=== PATIENT | male | born 1960 | race Caucasian/White ===

== ENCOUNTER 2021-07-08 02:25 | Emergency (ER) | payer MEDICAID, SELFPAY ==
--- NOTE | 2021-07-08 02:26 | ECG_ITS ---
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 Measurements Intervals [place] Rate: 82 P: 47 HI: 174 QRS: 7 QRSD: 108 T: 0 QT: 358 QTc: 420 Interpretive Statements SINUS RHYTHM LOW QRS VOLTAGE IN PRECORDIAL LEADS [QRS DEFLECTION < 1.0 mV IN CHEST LEADS] POSSIBLE LATERAL MYOCARDIAL INFARCTION , PROBABLY OLD [30 ms Q WAVE IN I/aVL/V5/V6] POSSIBLE INFERIOR MYOCARDIAL INFARCTION , PROBABLY OLD [30 ms Q WAVE IN II/aVF] No previous ECG available for comparison Electronically Signed On 07-08-2021 9:19:13 LUNCHROOM OPERATOR by Analilia Guy M.D. [id number]
--- NOTE | 2021-07-08 02:26 | XRR_ITS ---
PROCEDURE INFORMATION: Exam: XR Chest Exam date and time: 07/08/2021 2:26 AM Age: 60 years old Clinical indication: Chest pressure; Prior surgery; Surgery type: Coronary angioplasty; Patient HX: C/O chest pain. ; Additional info: Cp TECHNIQUE: Imaging protocol: XR of the chest. Views: 1 view. COMPARISON: No relevant prior studies available. FINDINGS: Lungs: No consolidation. Pleural spaces: Unremarkable. No pleural effusion. No pneumothorax. Heart/Mediastinum: No cardiomegaly. Bones/joints: No acute fracture. XR/XR chest 1V portable [id number] IMPRESSION: No acute findings.
--- NOTE | 2021-07-08 02:27 | W.ED.CHESTPA ---
HPI - Chest Pain General: Chief Complaint: Chest Pain Stated Complaint: CP Time Seen by Provider: 07/08/21 02:26 Source: patient and EMS Mode of arrival: EMS Limitations: no limitations History of Present Illness: 60-year-old male has extensive history of coronary artery disease states that he started having chest pain at 2 PM roughly 12 hours ago. States that pain throughout the day that will improve with nitro but he had to take 6-7 nitros throughout the day he states he has had 6-7 stents in the past last one was 2 years ago no recent cardiac work-up. Denies any worsening improving factors denies any shortness of breath denies any vomiting or diarrhea states he is not pain currently rates a 2 out of 10. Associated symptoms: Deny abdominal pain, dyspnea, fever(s), nausea or vomiting Review of Systems Const: Denies: fever(s), chills, body aches or change in appetite Eyes: Denies: blurry vision or eye discomfort ENMT: Denies: throat pain or dental pain Card: Reports: chest pain Resp: Denies: dyspnea GI: Denies: abdominal pain, nausea, vomiting or diarrhea : Denies: dysuria Musc: Denies: neck pain or back pain Skin/Breast: Denies: rash Neuro: Denies: headache(s) Psych: Denies: depression Romeo/Lymph: Denies: easy bruising All/Imm: Denies: urticaria PFSH ED PFSH: Medical History (Updated 07/08/21 @ 05:02 by Carlos Gama MD) Coronary artery disease Family History (Updated 07/08/21 @ 02:28 by Carlos Gama MD) Other CAD (coronary artery disease) Physical Exam Const: COMMON NORMALS: patient oriented x3 and healthy appearing HENMT: COMMON NORMALS: normocephalic and atraumatic HEAD & SCALP: normocephalic and atraumatic Eye: COMMON NORMALS: Equal, round and reactive pupils present and EOMs intact bilaterally PUPIL: Yes Equal, round and reactive pupils present Neck/C-Spine: COMMON NORMALS: full ROM and supple Chest: COMMONS NORMALS: normal inspection of the chest and normal palpation of entire chest wall Resp: COMMON NORMALS: normal respiratory effort, No retractions, No use of accessory muscles and clear to auscultation bilaterally AUSCULTATION: clear to auscultation bilaterally Cardio: COMMON NORMALS: regular rate, regular rhythm and No murmurs present (Cardio) RATE: regular rate RHYTHM: regular rhythm GI: COMMON NORMALS: Normal to inspection, nondistended, normoactive bowel sounds present, Soft to palpation, non-tender and no masses PALPATION: Yes Soft to palpation Extremity: COMMON NORMALS: normal to inspection and full ROM Neuro: COMMON NORMALS: patient oriented x3, moves all extremities and no focal motor deficits Psych: COMMON NORMALS: mental status grossly normal, Normal thought process present and cooperative THOUGHT PROCESS: Normal thought process present Skin: COMMON NORMALS: no rashes or lesions noted and no wounds GENERAL SKIN EXAM: no rashes or lesions noted Course Vital Signs: Vital signs: Vital Signs Temperature 98.0 F 07/08/21 02:28 Pulse Rate 88 07/08/21 02:28 Respiratory Rate 16 07/08/21 02:35 Pulse Oximetry 92 07/08/21 02:28 MDM - Chest Pain Medical Decision Making Patient presents here with chest pain atypical in nature he is well-appearing here initial and repeat troponins along with EKGs are normal he has been pain-free here as well no signs of pulmonary embolism no signs of pneumonia. He is to follow-up his PCP and his clinical education coordinator in 3 to 5 days and return if worsening he understands agrees to plan. Lab Data : 07/08/21 02:40 07/08/21 02:40 Radiology Impressions Chest X-Ray 07/08/21 02:26 IMPRESSION: No acute findings. Laboratory Results WBC 15.0 10^3/uL (4.0-10.0) H 07/08/21 02:40 RBC 5.70 10^6/uL (4.1-5.3) H 07/08/21 02:40 Hgb 16.6 g/dL (11.7-16.6) 07/08/21 02:40 Hct 49.5 % (42.0-52.0) 07/08/21 02:40 MCV 86.8 fl (80-94) 07/08/21 02:40 MCH 29.1 pg (28.0-34.0) 07/08/21 02:40 MCHC 33.5 g/dL (30.0-36.0) 07/08/21 02:40 RDW 12.7 % (12.1-15.1) 07/08/21 02:40 Plt Count 304 10^3/cmm (130-400) 07/08/21 02:40 MPV 10.6 fL (7.4-10.4) H 07/08/21 02:40 Neut % (Auto) 70.7 % 07/08/21 02:40 Lymph % (Auto) 18.2 % 07/08/21 02:40 Parke % (Auto) 8.3 % 07/08/21 02:40 Eos % (Auto) 1.5 % 07/08/21 02:40 Baso % (Auto) 0.7 % 07/08/21 02:40 Neut # (Auto) 10.60 10^3/uL (1.8-7.7) H 07/08/21 02:40 Lymph # (Auto) 2.7 10^3/uL (0.8-4.8) 07/08/21 02:40 Parke # (Auto) 1.2 10^3/uL (0.2-0.9) H 07/08/21 02:40 Eos # (Auto) 0.2 10^3/uL (0.0-0.8) 07/08/21 02:40 Baso # (Auto) 0.1 10^3/uL (0.0-0.1) 07/08/21 02:40 Nucleated RBC % (auto) 0 % 07/08/21 02:40 Nucleated RBCs # 0.0 /100WBC 07/08/21 02:40 Sodium 135 mmol/L (136-145) L 07/08/21 02:40 Potassium 4.3 mmol/L (3.5-5.1) 07/08/21 02:40 Chloride 101 mmol/L (98-107) 07/08/21 02:40 Carbon Dioxide 24 mmol/L (22-29) 07/08/21 02:40 Anion Gap 14.3 (5-19) 07/08/21 02:40 BUN 17 mg/dL (8-23) 07/08/21 02:40 Creatinine 0.9 mg/dL (0.7-1.2) 07/08/21 02:40 GFR Calculation 85.8 mL/min (90-130) L 07/08/21 02:40 Glucose 295 mg/dL (65-115) H 07/08/21 02:40 Calculated Osmolality 292 mOsm/kg (285-295) 07/08/21 02:40 Calcium 9.6 mg/dL (8.5-10.5) 07/08/21 02:40 Total Bilirubin 0.4 mg/dL (0.15-1.2) 07/08/21 02:40 AST 14 U/L (0-40) 07/08/21 02:40 ALT 18 U/L (0-41) 07/08/21 02:40 Alkaline Phosphatase 122 IU/L (40-130) 07/08/21 02:40 Troponin T Baseline 31 ng/L (0-15) H 07/08/21 02:40 Troponin T 120 Minute 34.11 ng/L (0-15) H 07/08/21 04:27 Delta Troponin T 3.11 ABS# (0-10) 07/08/21 04:27 Total Protein 6.3 g/dL (6.6-8.7) L 07/08/21 02:40 Albumin 3.9 g/dL (3.5-5.2) 07/08/21 02:40 Globulin 2.4 g/dL (1.3-4.6) 07/08/21 02:40 EKG Data EKG 1: I personally reviewed and interpreted this EKG as follows: EKG interpretation date: 07/08/21 EKG interpretation time: 02:27 Interpretation: nsr hr 82 with no stor t wave abnormalities qrs 108 qtc 397 EKG 2: I personally reviewed and interpreted this EKG as follows: EKG interpretation date: 07/08/21 EKG interpretation time: 04:23 Interpretation: nsr hr [address] or t wave abnormalities qrs 99 qtc 411 Discharge Plan Discharge Patient Disposition: Home Clinical Impression: Chest pain Condition: Stable Discharge Orders: Discharge ED (Routine); Ordered 07/08/21 Ordered By: Carlos Gama Referrals: Brittney Biggs LPC [Therapist] - 1-3 days Discharge Diet: Advance as tolerated Discharge Activity: Resume usual activity Patient Instructions: Chest Pain (ED) Coding Level of Care Code ED Poultry Feed Supervisor for Chg Fwd Exam Comprehensive
[2021-07-08 02:28] VITALS: PULSE 88; RESP 22; TEMP 36.7; O2SAT 92; BMI 37.3
[2021-07-08 02:35] VITALS: RESP 16
[2021-07-08] MEDS: morphine 4 mg/mL SDV 1 mL IVP (02:35)
[2021-07-08] MEDS: ondansetron 2 mg/ML SDV 2 mL 4 MG IVP (02:35)
[2021-07-08 02:49] LABS: Basophils # 0.1 10^3/uL (0.0-0.1); Basophils % 0.7 %; Eosinophils # 0.2 10^3/uL (0.0-0.8); Eosinophils % 1.5 %; Hematocrit 49.5 % (42.0-52.0); Hemoglobin 16.6 g/dL (11.7-16.6); Lymphocytes # 2.7 10^3/uL (0.8-4.8); Lymphocytes % 18.2 %; Mean Corpuscular HGB Conc 33.5 g/dL (30.0-36.0); Mean Corpuscular Hemoglobin 29.1 pg (28.0-34.0); Mean Corpuscular Volume 86.8 fl (80-94); Mean Platelet Volume 10.6 fL (7.4-10.4); Monocytes # 1.2 10^3/uL (0.2-0.9); Monocytes % 8.3 %; Neutrophils % 70.7 %; Nucleated Red Blood Cells % 0 %; Platelet Count 304 10^3/cmm (130-400); Red Cell Distribution Width 12.7 % (12.1-15.1)
[2021-07-08 03:17] LABS: Troponin(5th) Baseline 31 ng/L (0-15)
[2021-07-08 03:29] LABS: Alanine Aminotransferase 18 U/L (0-41); Albumin Level 3.9 g/dL (3.5-5.2); Alkaline Phosphatase 122 IU/L (40-130); Anion Gap 14.3 (5-19); Aspartate Amino Transferase 14 U/L (0-40); Blood Urea Nitrogen 17 mg/dL (8-23); Calcium 9.6 mg/dL (8.5-10.5); Carbon Dioxide 24 mmol/L (22-29); Chloride 101 mmol/L (98-107); Globulin 2.4 g/dL (1.3-4.6); Glomerular Filtration Rate 85.8 mL/min (90-130); Glucose 295 mg/dL (65-115); Osmolality Calculated 292 mOsm/kg (285-295); Potassium 4.3 mmol/L (3.5-5.1); Sodium 135 mmol/L (136-145); Total Bilirubin 0.4 mg/dL (0.15-1.2); Total Protein 6.3 g/dL (6.6-8.7)
--- NOTE | 2021-07-08 04:26 | ECG_ITS ---
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 [id number]
[2021-07-08 05:15] LABS: Troponin 5 2HR 34.11 ng/L (0-15)
[2021-07-08 05:17] LABS: Troponin 5 2HR Delta 3.11 ABS# (0-10)
== END 2021-07-08 05:40 | disposition home or self-care (01) ==
PROVIDERS: Emergency Provider Emergency Medicine
DX: R07.9 Chest pain, unspecified (principal); I25.10 Atherosclerotic heart disease of native coronary artery without angina pectoris
CPT/HCPCS: 71045; 80053; 84484; 85025; 93005; 96374; 96375; 99283; J2270; J2405

== ENCOUNTER 2022-02-21 01:02 | Inpatient (IN) | payer MEDICAID, SELFPAY ==
[2022-02-21] VITALS (18 sets, daily range): BP systolic 111–148; BP diastolic 76–87; PULSE 58–88; RESP 16–24; TEMP 36.1–36.9; O2SAT 94–97; BMI 33.0
--- NOTE | 2022-02-21 01:05 | ECG_ITS ---
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 Measurements Intervals [place] Rate: 70 P: 58 DE: 160 QRS: -26 QRSD: 88 T: 91 QT: 398 QTc: 432 Interpretive Statements SINUS RHYTHM POSSIBLE INFERIOR MYOCARDIAL INFARCTION , PROBABLY OLD [30 ms Q WAVE IN II/aVF] Compared to ECG 07/08/2021 04:23:47 Myocardial infarct finding now present T-wave abnormality no longer present Electronically Signed On 02-21-2022 7:36:52 CDT by Danny Villafana M.D. [id number]
--- NOTE | 2022-02-21 01:05 | USR_ITS ---
PROCEDURE INFORMATION: Exam: US Duplex Bilateral Extracranial Arteries, Carotid Arteries Exam date and time: 02/21/2022 2:02 AM Age: 61 years old Clinical indication: Other: Lt side painful and week; Additional info: CVA TECHNIQUE: Imaging protocol: Real-time Duplex ultrasound scan of the bilateral carotid and vertebral arteries combining shi scale, color Doppler and spectral waveform analysis. Bilateral exam. Exam focused on the carotid arteries. Other technique: Any reported ICA stenoses indirectly reference the distal internal carotid diameter as the denominator for the stenosis measurement, utilizing consensus panel criteria. COMPARISON: No relevant prior studies available. FINDINGS: RIGHT: Moderate bulb plaque ICA PSV: Low at 48.1 cm/sec distally and 26.3 cm/s proximally. CCA PSV: 101.4 cm/sec ICA/CCA ratio: 0.45 Vertebral flow is antegrade. External carotid artery is patent. LEFT: Minimal bulb plaque ICA PSV: 97 cm/sec CCA PSV: 102.5 cm/sec ICA/CCA ratio: 0.94 Vertebral flow is antegrade. External carotid artery is patent. US/CV carotid duplex BI* [id number] IMPRESSION: 1. Moderate right bulb plaque. Decreased peak systolic velocities of the right proximal internal carotid artery with high resistance waveforms. This is suggestive of severe >90% stenosis. Recommend CTA or MRI for further assessment. 2. Left ICA < 50% stenosis by Carotid Stenosis Reference using SRU criteria. 3. Antegrade flow in bilateral vertebral arteries. REFERENCES: SRU CRITERIA. The degree of internal carotid artery stenosis is based on criteria defined by the Society of Radiologists in Ultrasound (SRU). Normal is no stenosis. Mild is less than 50% stenosis. Moderate is 50-69% stenosis. Severe is greater than 69% stenosis to near occlusion. Near occlusion is a markedly narrowed lumen. Total occlusion is no detectable patent lumen.
--- NOTE | 2022-02-21 01:05 | XRR_ITS ---
PROCEDURE INFORMATION: Exam: XR Left Shoulder Exam date and time: 02/21/2022 1:58 AM Age: 61 years old Clinical indication: Pain; Shoulder; Left TECHNIQUE: Imaging protocol: Radiologic exam of the Left shoulder. Views: 2 or more views. Total images: 132 COMPARISON: CR XR chest 1V portable [id number] 07/08/2021 3:06 AM FINDINGS: Bones/joints: Widening of left AC joint with small ossification within joint space but no significant adjacent soft tissue swelling most likely represents a remote injury. No additional fracture, subluxation, or dislocation detected. Soft tissues: See Bones/joints finding. XR/XR shoulder LT 1V [id number] IMPRESSION: Widening of left AC joint with small ossification within joint space but no significant adjacent soft tissue swelling most likely represents a remote injury.
--- NOTE | 2022-02-21 01:05 | USCV_ITS ---
Steve Louis Age: 61 Gender: M : 1960 Exam Date: 02/21/2022 01:32 Ordering Phys: Quintin Greer MD Technologist: Roro Le Exam Location: [facility] [place] Indication: CVA BP: 143 / 79 HR: 72 Rhythm: Sinus Technical Quality: Suboptimal MEASUREMENTS (Male / Female) Normal Values 2D ECHO LV Diastolic Diameter PLAX 3.2 cm 4.2 - 5.9 / 3.9 - 5.3 cm LV Systolic Diameter PLAX 2.5 cm LV Chamber Size 4.0 cm IVS Diastolic Thickness 1.0 cm 0.6 - 1.0 / 0.6 - 0.9 cm IVS Systolic Thickness 0.9 cm LVPW Diastolic Thickness 1.8 cm 0.6 - 1.0 / 0.6 - 0.9 cm LVPW Systolic Thickness 1.9 cm RV Chamber Size 2.7 cm LVOT Diameter 2.0 cm LV Ejection Fraction 2D Teich 43.3 % LV Ejection Fraction MOD 2C 42.9 % LV Ejection Fraction 2C AL 44.1 % LA Diameter 3.2 cm LA Width 3.5 cm LA Height 4.5 cm RA Width 3.2 cm RA Height 4.1 cm Aorta at Sinotubular Diameter 3.1 cm IVC Diameter 2.2 cm M-MODE Aortic Annulus Diameter 3.4 cm LA Ao Ratio MM 1.0 MV E Point Septal Separation 2.2 cm DOPPLER AV Peak Velocity 150.0 cm/s LVOT Peak Velocity 89.0 cm/s AV Area Cont Eq vti 2.2 cm squared AV Area Cont Eq pk 1.9 cm squared MV Area PHT 2.9 cm squared Mitral E to A Ratio 0.7 MV E' Velocity 56.0 cm/s TR Peak Velocity 176.5 cm/s TR Peak Gradient 12.5 mmHg TR Mean Velocity 135.5 cm/s TR Mean Gradient 7.9 mmHg TR Velocity Time Integral 55.2 cm TV Peak E Velocity 59.0 cm/s Right Atrial Pressure 3.0 mmHg Pulmonary Artery Systolic Pressu 15.5 mmHg RV Acceleration Time 0.2 s RV Ejection Time 0.4 s RV AcT/ET 0.5 FINDINGS Left Ventricle Normal left ventricular size, systolic function and wall thickness, with no regional wall motion abnormalities. Grade I/IV diastolic dysfunction (abnormal relaxation filling pattern), normal to mildly elevated filling pressures. Left ventricular ejection fraction is estimated at 60 %. Right Ventricle Normal right ventricular size and systolic function. Normal right ventricular systolic pressure. Right Atrium The right atrium is normal in size. Left Atrium The left atrium is normal in size. Mitral Valve Structurally normal mitral valve without significant stenosis or prolapse. There is no mitral regurgitation. Aortic Valve Structurally normal aortic valve without significant sclerosis or stenosis. There is no aortic regurgitation. Tricuspid Valve Structurally normal tricuspid valve without significant stenosis or regurgitation. Pulmonary artery systolic pressure is normal. Pulmonic Valve Pulmonic valve not well visualized. Pericardium Normal pericardium without effusion. Aorta Normal ascending aorta dimension. IVC Inferior vena cava not visualized. CONCLUSIONS Normal left ventricular size, systolic function and wall thickness, with no regional wall motion abnormalities. Grade I/IV diastolic dysfunction (abnormal relaxation filling pattern), normal to mildly elevated filling pressures. Left ventricular ejection fraction is estimated at 60 %. There are no prior echocardiogram studies to compare. Dr. Danny Villafana MD (Electronically Signed) Final Date: 21 February 2022 07:26 S
[2022-02-21 01:10] LABS: Glucose Point of Care 352 mg/dL (70-110)
--- NOTE | 2022-02-21 01:11 | PM.HP ---
Providers/Chief Complaint Admitting Physician: Quintin Greer MD Chief Complaint: CVA History of Present Illness Steve Louis is a 61 year old male with a past medical history of CAD status post 7 stents, history of hypertension, hyperlipidemia, history of hepatitis C, history of COPD, history of noncompliance, who presents [facility] as a transfer from [facility] for concerns for left-sided weakness, difficulty walking, left-sided numbness, concerns for CVA. Patient tells me that for the last 2 weeks, he has had left upper and left lower extremity weakness, left upper and lower extremity numbness, slight left tongue numbness, no slurring of words, slight left facial droop, no visual deficits, trouble walking, difficulty standing. He tells me that his symptoms were intermittent for the last 2 weeks, they would go away on their own, but they were becoming much more profound, much more constant, such that today he had significant numbness and weakness of his left upper and lower extremity throughout the day thus he decided to come to the emergency room. Currently he reports left upper extremity and left lower extremity numbness, left upper left lower extremity weakness, left tongue numbness, no slurring words, slight left facial droop, no trouble understanding me, no productive aphasia, no receptive aphasia, denies any trouble swallowing, no visual deficits, but he tells it when his sugars are high he gets blurry vision, and his sugars were high at [facility] over 600. He tells me that he has not taking any of his medications for the last year or so, he was on Plavix at 1 point, his last one was over a year ago, denies a history of TIA in the past, denies a history of strokes. He tells me that he was on metformin for diabetes but it was causing diarrhea so he stopped it. His blood sugar was over 600 at [facility], he was given insulin, repeat blood sugar came to the low 400s, currently 352, anion gap was 21, bicarb was 22, he does report alcohol use, chronic history of alcoholism, he drank a half a pint of whiskey today, he also reports methamphetamine abuse, he was also found to have a UTI at [facility] was given Rocephin, his troponin was also negative at [facility], his CT of his head showed focal area of hypodensity in the involving the right frontal lobe, likely represents acute to subacute infarct, there is a similar but smaller focus of on the right parietal lobe, denies a history of atrial fibrillation, denies being on any blood thinners except atrial fibrillation. Currently he is describing left shoulder discomfort and left shoulder pain, he tells me that he has been having it for the last week but is becoming much more profound, really not chest pain, but the pain is in his anterior chest closer to his shoulder, he is not injured his left shoulder, no heavy lifting he was given fentanyl at [facility] without improvement. He was also diagnosed with a UTI, however his nitrates was negative, leukocyte esterase was negative, was given Rocephin. Review of Systems Const: Denies: fever(s) Eyes: Reports: blurry vision; Denies: change in vision Card: Reports: chest pain Resp: Denies: dyspnea GI: Denies: abdominal pain : Denies: dysuria Musc: Reports: joint pain Skin/Breast: Denies: rash Neuro: Reports: numbness in extremities, weakness in extremities, sensory changes, lack of coordination, difficulty walking and frequent falls; Denies: headache(s), Slurred speech present or difficulty communicating thoughts Endo: Reports: polyuria Medications/Allergies Allergies Allergy/AdvReac Type Severity Reaction Status Date / Time chlorpromazine Allergy Unknown Verified 07/08/21 03:05 [From Thorazine] codeine Allergy Unknown Verified 07/08/21 02:29 PFSH Acute PFSH: Medical History (Updated 02/21/22 @ 01:18 by Quintin Greer MD) Coronary artery disease History of alcoholism History of COPD History of drug use History of hepatitis C History of hyperlipidemia History of hypertension History of liver disease History of type 2 diabetes mellitus Surgical History (Updated 02/21/22 @ 01:18 by Quintin Greer MD) History of cholecystectomy History of heart artery stent Family History (Updated 02/21/22 @ 01:18 by Quintin Greer MD) Mother CAD (coronary artery disease) Social History (Updated 02/21/22 @ 01:19 by Quintin Greer MD) Smoking and tobacco status: never smoked Alcohol intake: current Substance/Drug Use: current Physical Exam Const: COMMON NORMALS: no acute distress and patient oriented x3 HENMT: COMMON NORMALS: normocephalic HEAD & SCALP: normocephalic Eye: COMMON NORMALS: Equal, round and reactive pupils present and EOMs intact bilaterally Neck/C-Spine: COMMON NORMALS: no JVD Resp: COMMON NORMALS: normal respiratory effort, No retractions, No use of accessory muscles and clear to auscultation bilaterally AUSCULTATION: clear to auscultation bilaterally Cardio: COMMON NORMALS: no JVD, regular rate, regular rhythm, S1 normal heart sound present and S2 normal heart sound present RATE: regular rate RHYTHM: regular rhythm HEART SOUNDS: S1 normal heart sound present and S2 normal heart sound present GI: COMMON NORMALS: Normal to inspection, nondistended, normoactive bowel sounds present, Soft to palpation, non-tender, No hepatosplenomegaly present, no masses and no bruits PALPATION: Yes Soft to palpation and Yes No hepatosplenomegaly present Extremity: COMMON NORMALS: capillary refill normal, no clubbing, cyanosis or edema, no calf tenderness and no pedal edema Neuro: COMMON NORMALS: patient oriented x3 and CN's II-XII intact bilaterally OTHER: Left upper extremity strength 3 out of 5 compared to 5 out of 5 on the right Loss of sensation on left upper extremity Left lower extremity strength 3 out of 5 compared to 5/5 in the right [id number] abnormal on the left Slight left facial droop Psych: COMMON NORMALS: mental status grossly normal A&P Assessment and plan (1) Noncompliance: Status: Acute (2) Hyperglycemia: Status: Acute (3) CVA (cerebral vascular accident): Status: Acute (4) Chest pain: Status: Acute (5) Coronary artery disease: Status: Acute Plan CVA -Head CT shows focal area of hypodensity involving the right frontal lobe which is new since 2017, and likely represents an acute to subacute infarct, there is similar but smaller focus involving the right parietal lobe -No history of atrial fibrillation -Left-sided weakness and numbness, falls, slight left facial droop Plan -Neurochecks, NIH stroke scale, aspiration precautions -Aspirin 81 mg daily, Plavix 75 mg daily, bridge for 3 weeks -Atorvastatin 40 mg once daily -Cardiac echo, carotid artery ultrasound -PT OT, speech therapy eval -Telemetry monitoring -Given he has multiple infarcts in different vascular territories, recommend Holter monitor or event monitor on discharge -Full code -Lovenox for DVT prophylaxis Chest pain complaints -His chest pain complaints are atypical, do's seem more shoulder related -Serial EKGs serial troponins, telemetry monitoring -Aspirin, statin, Coreg -Cardiac echo -Further work-up based on test results Hypertensive urgency -Blood pressures at [facility] systolics in the 160s, diastolics in the 100 -We will start Coreg 3.125 twice daily, monitor blood pressure closely Type 2 diabetes mellitus, with hyperglycemia -Check A1c -Blood sugars over 600s, no significance of DKA -Moderate dose sliding scale -Lantus 5 units every 12 hours -Monitor blood sugars closely Hypertension as above Hyperlipidemia, lipid panel Hepatitis C history, acute hep panel, viral load, will need to follow-up with GI or infectious disease as outpatient History of alcoholism, CIWA score History of methamphetamine abuse, could be a contributing factor to his chest pain, CVA Attestations Medical Necessity Statement*: Patient requires hospitalization, inpatient, greater than 2 midnights, for acute CVA, chest pain, hypertensive urgency, hyperglycemia, alcoholism, Coding Level of Care Code 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
[2022-02-21] MEDS: enoxaparin 40 mg/0.4 mL Syringe SUBCUT (02:32)
[2022-02-21] MEDS: atorvastatin 40 mg Tablet PO (02:33)
[2022-02-21] MEDS: aspirin 81 mg EC Tablet PO (02:33)
[2022-02-21] MEDS: clopidogrel 75 mg Tablet PO (02:34)
[2022-02-21] MEDS: carvedilol 3.125 mg Tablet PO ×2 (02:34→12:51)
[2022-02-21] MEDS: morphine 4 mg/mL SDV 1 mL 2 MG IVP (02:35)
[2022-02-21] MEDS: insulin glargine 100 units/1 mL 5 UNIT SUBCUT ×2 (02:36→14:42)
[2022-02-21 04:47] LABS: Troponin(5th) Baseline 36 ng/L (0-15)
[2022-02-21 05:03] LABS: Chol HDL Ratio 7.19 mg/dL (1.0-5.00); Cholesterol 187 mg/dL (0-200); HDL Cholesterol 26 mg/dL (60-100); LDL Cholesterol Calculated 110 mg/dL (50-129); LDL HDL Ratio 4.23 RATIO (0.00-3.22); NT Pro B Type Natriuretic Pept 234 pg/mL (0-125); Triglycerides 255 mg/dL (0-150)
[2022-02-21 05:04] LABS: Estmated Average Glucose 289; Hemoglobin A1C 11.7 % (4.0-6.0)
[2022-02-21 05:08] LABS: Hepatitis A Antibody IgM Non-Reactive (Nonreactive); Hepatitis B Core IgM Non-Reactive (Nonreactive); Hepatitis B Surface Antigen Non-Reactive (Nonreactive); Hepatitis C Virus Antibody Reactive (Nonreactive)
[2022-02-21 05:29] LABS: Alanine Aminotransferase 24 U/L (0-41); Albumin Level 3.5 g/dL (3.5-5.2); Alkaline Phosphatase 113 U/L (40-130); Aspartate Amino Transferase 32 U/L (0-40); Globulin 3.1 g/dL (1.3-4.6); Magnesium 1.9 mg/dL (1.7-2.3); Total Bilirubin 0.5 mg/dL (0.15-1.2); Total Protein 6.6 g/dL (6.6-8.7)
--- NOTE | 2022-02-21 06:19 | ECG_ITS ---
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 Measurements Intervals [place] Rate: 63 P: -36 ND: 153 QRS: -13 QRSD: 89 T: 105 QT: 407 QTc: 417 Interpretive Statements SINUS RHYTHM NONSPECIFIC T-WAVE ABNORMALITY Compared to ECG 02/21/2022 03:50:03 T-wave abnormality now present Myocardial infarct finding no longer present Electronically Signed On 02-21-2022 7:40:34 CDT by Danny Villafana M.D. [id number]
[2022-02-21 06:32] LABS: Glucose Point of Care 324 mg/dL (70-110)
[2022-02-21 06:44] LABS: Troponin 5 2HR 34.51 ng/L (0-15)
[2022-02-21 07:04] LABS: Troponin 5 2HR Delta -1.49 ABS# (0-10)
[2022-02-21] MEDS: insulin lispro 100 unit/1 mL SUBCUT ×4 (08:53→21:34)
[2022-02-21] MEDS: thiamine 100 mg Tablet PO (08:54)
[2022-02-21] MEDS: multivitamin therapeutic Tablet 1 TAB PO (08:54)
[2022-02-21] MEDS: pantoprazole DR 40 mg Tablet PO (08:54)
[2022-02-21] MEDS: folic acid 1 mg Tablet PO (08:54)
--- NOTE | 2022-02-21 09:55 | PC.PHAR ---
pt states he hasnt been taking any medications-pt hasnt picked up rx filled 02/01/22 30d/s for atorvastatin 40mg daily and imdur 15mg daily rx was last filled and picked up on 11/13/21 30d/s-pt states he use to take metformin 1000mg [facility] states last filled 08/2021 30d/s pt states it made him sick to take
[2022-02-21 10:59] LABS: Troponin 5 6HR 37.83 ng/L (0-15); Troponin 5 6HR Delta 1.83 ng/L (0-12)
[2022-02-21] MEDS: acetaminophen 325 mg Tablet 650 MG PO (11:22)
[2022-02-21 12:04] LABS: Glucose Point of Care 279 mg/dL (70-110)
--- NOTE | 2022-02-21 12:19 | P.MISC_ITS ---
Miscellaneous Note Note: Overnight labs and H&P reviewed. Patient seen and examined at bedside this morning. Noted still with left upper and lower extremity weakness. Awaiting PT OT evaluation. Was able to swallow his breakfast this morning without any issues. Echocardiogram shows normal ventricular size, normal sy stolic function and wall thickness. Grade 1 diastolic dysfunction noted. LVEF at 60%. Carotid Doppler with moderate right bulb plaque, severe greater than 90% stenosis. Left ICA less than 50%. Anterograde flow noted in bilateral vertebral arteries.Continue aspirin and Plavix. Will discuss findings of vertebral stenosis with neurology. Ordered additionally nicotine patch. Noted to have slight wheezing in bilateral lungs. Added DuoNeb every 6 hours standing nebulization.
[2022-02-21] MEDS: nicotine 14 mg Patch 1 PATCH TRANSDERMA (12:50)
--- NOTE | 2022-02-21 14:44 | PC.NURSE ---
Glarigan 5 units had to be manually documented due to bar code not scanning. Benedicto notified, hand carried glarigan to pharmacy. New label placed and returned to floor. Still will not scan. Benedicto stated to manually document. Manually documented and verified with KOLBY Tan.
[2022-02-21] MEDS: ipratropium-albuterol 3 mL Neb INHALATION ×2 (14:47→19:41)
[2022-02-21 16:32] LABS: Glucose Point of Care 225 mg/dL (70-110)
--- NOTE | 2022-02-21 16:51 | PM.CONSULT ---
Providers/Reason For Consult Consulting Physician/Specialty*: Dr. Weiss/cardiothoracic surgery Reason for Consult*: Right carotid artery stenosis with right hemispheric CVA Requesting Physician: Dr. Hansen Attending Physician: Johana Hansen MD Primary Care Provider: Cody Monterroso History of Present Illness History of Present Illness Steve Louis is a 61 year old male who was transferred from [facility] in the early hours of this morning for continued treatment for an apparent CVA. Mr. Louis had been complaining of increasing difficulty with walking along with left-sided weakness and now progressive left-sided paresthesias. The symptoms all began about 2 weeks ago with a slight period of improvement and now worsening. He presented with left upper and left lower extremity weakness along with paresthesia. He also has some slight hypoesthesia of his tongue though no slurring of speech or facial droop. Over the past 2 days prior to presentation, the symptoms have increased and been more consistent as compared to their variability prior. He has numerous comorbidities including coronary artery disease status post 7 stents. He also has a history of hyperlipidemia, hepatitis C, hypertension, COPD, and history of medical noncompliance. He also has diabetes mellitus. No reported prior history for TIA/CVA. Upon presentation to [facility] he was noted to have serum glucose of over 400 with an anion gap of 21. Also found to have a urinary tract infection and was given Rocephin. CT scan of the head obtained at [facility] showed focal areas of hypodensity involving the right frontal lobe as well as a smaller focus in the right parietal lobe which they felt represented subacute infarction. No history for arrhythmias. Since arrival, transthoracic echocardiogram revealed preserved LV function with normal ventricular size and wall thickness and motion. Carotid duplex study describes a right carotid bulb plaque suggesting stenosis of over 90%. Left ICA suggest stenosis less than 50%. Dr. Hansen has conferred with our neurologist, Dr. Canas. She has recommended consideration for MRI/MRA of the head and neck to help further quantify the disease as well as establish a timeline for presentation. On my rounds this afternoon, Mr. Louis is sleeping on his right side. His sleep is regular without snoring. Nurses report no specific concerns on day shift. He is able to swallow medications and food without difficulty. Current medications include Lovenox, Plavix, aspirin, Lipitor, and insulin per protocol. Review of Systems Const: Reports: body aches; Denies: fever(s) or chills Eyes: Reports: blurry vision ENMT: Denies: throat pain, odynophagia or hoarseness Card: Reports: dyspnea on exertion; Denies: chest pain, palpitations, irregular heart rhythm or swelling of feet/ankles Resp: Denies: non-productive cough, wheezing or hemoptysis GI: Denies: nausea, vomiting or hematemesis Musc: Reports: back pain and joint pain Skin/Breast: Denies: rash or changes in skin color Neuro: Reports: numbness in extremities, weakness in extremities and sensory changes; Denies: lack of coordination, confusion, Slurred speech present or difficulty communicating thoughts Endo: Reports: polyuria and polydipsia Romeo/Lymph: Denies: easy bleeding or petechiae Medications/Allergies Home Medications Medication Instructions Recorded Confirmed Last Taken Type albuterol sulfate 90 mcg/actuation 2 puff inhalation Q4H PRN 02/21/22 02/21/22 Unknown History aerosol inhaler (ProAir HFA) Shortness Of Breath atorvastatin 40 mg tablet 40 mg PO QPM 02/21/22 02/21/22 Unknown History isosorbide mononitrate 30 mg 15 mg PO QAM 02/21/22 02/21/22 Unknown History tablet,extended release 24 hr Allergies Allergy/AdvReac Type Severity Reaction Status Date / Time chlorpromazine Allergy Unknown Verified 02/21/22 09:49 [From Thorazine] codeine Allergy Unknown Verified 02/21/22 09:49 Current Medications Generic Name Dose Route Start Last Admin Trade Name Freq PRN Reason Stop Dose Admin Acetaminophen 650 mg 02/21/22 01:05 02/21/22 11:22 Acetaminophen 325 Mg Tablet PO 650 mg Q6H PRN Administration Mild/Mod Pain Or Temp >/= 101 Albuterol/Ipratropium 3 ml 02/21/22 14:00 02/21/22 14:47 Ipratropium-Albuterol 3 Ml Neb INHALATION 3 ml Q6H.RESP ARABELLA Administration Aspirin 81 mg 02/21/22 01:15 02/21/22 02:33 Aspirin 81 Mg Ec Tablet PO 81 mg Q24H ARABELLA Administration Atorvastatin Calcium 40 mg 02/21/22 01:15 02/21/22 02:33 Atorvastatin 40 Mg Tablet PO 40 mg Q24H ARABELLA Administration Carvedilol 3.125 mg 02/21/22 01:15 02/21/22 12:51 Carvedilol 3.125 Mg Tablet PO 3.125 mg Q12H ARABELLA Administration Clopidogrel Bisulfate 75 mg 02/21/22 01:15 02/21/22 02:34 Clopidogrel 75 Mg Tablet PO 75 mg Q24H ARABELLA Administration Enoxaparin Sodium 40 mg 02/21/22 01:15 02/21/22 02:32 Enoxaparin 40 Mg/0.4 Ml Syringe SUBCUT 40 mg Q24H ARABELLA Administration Folic Acid 1 mg 02/21/22 09:00 02/21/22 08:54 Folic Acid 1 Mg Tablet PO 1 mg DAILY ARABELLA Administration Insulin Human Lispro 0 unit 02/21/22 08:00 02/21/22 12:50 Insulin Lispro 100 Unit/1 Ml SUBCUT 10 unit WM&BEDTIME ARABELLA Administration Protocol Morphine Sulfate 2 mg 02/21/22 01:05 02/21/22 02:35 Morphine 4 Mg/Ml Sdv 1 Ml IVP 2 mg Q4H PRN Administration SEVERE PAIN Multivitamins Therapeutic 1 tab 02/21/22 09:00 02/21/22 08:54 Multivitamin Therapeutic Tablet PO 1 tab DAILY ARABELLA Administration Nicotine 1 patch 02/21/22 12:25 02/21/22 12:50 Nicotine 14 Mg Patch TRANSDERMA 1 patch DAILY ARABELLA Administration Pantoprazole Sodium 40 mg 02/21/22 09:00 02/21/22 08:[address] 40 Mg Tablet PO 40 mg DAILY ARABELLA Administration Thiamine Mononitrate 100 mg 02/21/22 09:00 02/21/22 08:54 Thiamine 100 Mg Tablet PO 100 mg DAILY ARABELLA Administration PFSH Acute PFSH: Medical History Coronary artery disease History of alcoholism History of COPD History of drug use History of hepatitis C History of hyperlipidemia History of hypertension History of liver disease History of type 2 diabetes mellitus Surgical History History of cholecystectomy History of heart artery stent Family History Mother CAD (coronary artery disease) Social History Smoking and tobacco status: never smoked Alcohol intake: current Substance/Drug Use: current Current occupation: Disabled Vitals/I&O/Wt Last Vital Signs Temp 98.0 F 02/21/22 11:30 Pulse 76 02/21/22 14:48 Resp 16 02/21/22 14:48 BP 123/87 02/21/22 11:30 Pulse Ox 95 02/21/22 14:48 O2 Del Method 02/21/22 14:48 02/21/22 02/21/22 02/21/22 06:59 14:59 22:59 Intake Total 360 / 360 1072 / 1072 Output Total 450 / 450 Balance -90 / -90 1072 / 1072 Weight last 48 hrs Weight 237 lb Physical Exam HENMT: COMMON NORMALS: normocephalic and atraumatic HEAD & SCALP: normal to inspection, normocephalic and atraumatic Neck/C-Spine: OTHER: No left carotid bruit. Patient was sleeping fairly heavily at the time of my exam. He was lying on his right side, was unable to assess his right neck. I will follow-up with this tomorrow. Chest: COMMONS NORMALS: normal palpation of entire chest wall CHEST: Yes Symmetrical chest wall rise Resp: COMMON NORMALS: normal respiratory effort, No retractions, No use of accessory muscles and clear to auscultation bilaterally AUSCULTATION: clear to auscultation bilaterally Cardio: COMMON NORMALS: regular rate, regular rhythm, S1 normal heart sound present and No murmurs present (Cardio) RATE: regular rate RHYTHM: regular rhythm HEART SOUNDS: S1 normal heart sound present GI: COMMON NORMALS: Normal to inspection, nondistended, normoactive bowel sounds present INSPECTION: Yes central obesity Extremity: NARRATIVE EXTREMITY EXAM: 1+ lower extremity edema Neuro: OTHER: Neurologic exam was not completed this afternoon as patient was sleeping fairly heavily at the time of my exam. Nurses report he had been sleeping in the bed of the afternoon. I will follow-up with him tomorrow for further assessment. While awake, nurses report no change in his neurologic exam as compared to presentation which included left upper and lower extremity weakness. A&P Assessment and plan (1) Carotid stenosis with cerebral infarction less than 8 weeks ago: I have conferred with my colleague Dr. Hansen. She has conferred with Dr. Canas. We will await results of the MRA of the head and neck. Given that there is documented cerebral tissue infarction, it would be most ideal not to proceed with anticoagulation associated with carotid endarterectomy at this early stage (for fear of postinfarction hemorrhage with anticoagulation) unless we suspect there is ongoing stuttering infarction from this lesion. We will be able to get further clarification of the anatomy once the radiographic studies have been completed. A great appreciate Dr. Hansen's input along with Dr. Canas, I will follow closely with them. Status: Acute Consult Attestations Medical Necessity Statement: Carotid stenosis with cerebral infarction less than 8 weeks Coding Level of Care Code New Pt Acute Business Process Representative for Chg Fwd Patient Type New Diagnoses Carotid stenosis with cerebral infarction less than 8 weeks ago
[2022-02-21 20:58] LABS: Glucose Point of Care 357 mg/dL (70-110)
[2022-02-21] MEDS: oxyCODONE-APAP 5-325 mg Tablet 1 TAB PO (21:34)
[2022-02-22] VITALS (15 sets, daily range): BP systolic 117–136; BP diastolic 63–95; PULSE 48–72; RESP 18–22; TEMP 36.3–36.7; O2SAT 94–98
[2022-02-22] MEDS: carvedilol 3.125 mg Tablet PO (00:16)
[2022-02-22] MEDS: atorvastatin 40 mg Tablet PO (00:16)
[2022-02-22] MEDS: enoxaparin 40 mg/0.4 mL Syringe SUBCUT (00:16)
[2022-02-22] MEDS: clopidogrel 75 mg Tablet PO (00:16)
[2022-02-22] MEDS: aspirin 81 mg EC Tablet PO (00:16)
[2022-02-22] MEDS: ipratropium-albuterol 3 mL Neb INHALATION ×3 (01:16→14:28)
[2022-02-22] MEDS: insulin glargine 100 units/1 mL 5 UNIT SUBCUT (05:11)
[2022-02-22] MEDS: oxyCODONE-APAP 5-325 mg Tablet 1 TAB PO ×2 (05:11→22:11)
[2022-02-22 05:32] LABS: Basophils # 0.1 10^3/uL (0.0-0.1); Eosinophils # 0.3 10^3/uL (0.0-0.8); Eosinophils % 2.4 %; Hematocrit 50.7 % (42.0-52.0); Hemoglobin 16.7 g/dL (11.7-16.6); Lymphocytes # 3.5 10^3/uL (0.8-4.8); Mean Corpuscular HGB Conc 32.9 g/dL (30.0-36.0); Mean Corpuscular Hemoglobin 29.2 pg (28.0-34.0); Mean Corpuscular Volume 88.8 fl (80-94); Mean Platelet Volume 10.8 fL (7.4-10.4); Monocytes # 1.2 10^3/uL (0.2-0.9); Monocytes % 9.1 %; Neutrophils # 7.58 10^3/uL (1.8-7.7); Neutrophils % 59.1 %; Nucleated Red Blood Cells % 0 %; Platelet Count 303 10^3/cmm (130-400); Red Blood Count 5.71 10^6/uL (4.1-5.3); Red Cell Distribution Width 12.9 % (12.1-15.1); White Blood Count 12.8 10^3/uL (4.0-10.0)
[2022-02-22 05:49] LABS: Anion Gap 15.9 (5-19); Blood Urea Nitrogen 13 mg/dL (8-23); Calcium 9.1 mg/dL (8.5-10.5); Carbon Dioxide 20 mmol/L (22-29); Chloride 99 mmol/L (98-107); Creatinine Clr Calc Pharmacy 106.1431; Glomerular Filtration Rate 85.5 mL/min (90-130); Glucose 257 mg/dL (65-115); Osmolality Calculated 281 mOsm/kg (285-295); Potassium 3.9 mmol/L (3.5-5.1); Sodium 131 mmol/L (136-145)
[2022-02-22 06:22] LABS: Glucose Point of Care 234 mg/dL (70-110)
[2022-02-22] MEDS: insulin lispro 100 unit/1 mL SUBCUT ×4 (09:07→21:22)
[2022-02-22] MEDS: pantoprazole DR 40 mg Tablet PO (09:08)
[2022-02-22] MEDS: multivitamin therapeutic Tablet 1 TAB PO (09:08)
[2022-02-22] MEDS: nicotine 14 mg Patch 1 PATCH TRANSDERMA (09:08)
[2022-02-22] MEDS: folic acid 1 mg Tablet PO (09:09)
--- NOTE | 2022-02-22 10:06 | PC.OT ---
OT tx attempted 929. Pt reports feeling SOB after that breathing tx . Nursing checking pt and report he is ok for OT tx. Pt requesting to wait awhile . Therapist to return later today.
[2022-02-22] MEDS: thiamine 100 mg Tablet PO (10:23)
--- NOTE | 2022-02-22 11:13 | CTR_ITS ---
PROCEDURE INFORMATION: Exam: CTA Head With Contrast, Arteriography Exam date and time: 02/22/2022 9:44 PM Age: 61 years old Clinical indication: Prior surgery; Surgery type: Coronary stent; Patient HX: RT carotid stenosis noted on US on 02/21/2022. ; Additional info: Carotid stenosis, 3d reconstruction per Dr. Mares TECHNIQUE: Imaging protocol: Computed tomographic angiography of the head with contrast. Exam focused on the arteries. 3D rendering (Not supervised by radiologist): MIP and/or 3D reconstructed images were created by the technologist. Radiation optimization: All CT scans at this facility use at least one of these dose optimization techniques: automated exposure control; mA and/or kV adjustment per patient size (includes targeted exams where dose is matched to clinical indication); or iterative reconstruction. Contrast material: OMNI 350; Contrast volume: 95 ml; Contrast route: INTRAVENOUS (IV); COMPARISON: CT head wo con* [id number] 02/20/2022 7:09 PM RADIATION DOSE METRICS: Total DLP (mGy-cm): 1732.55 FINDINGS: ANTERIOR CIRCULATION: Right internal carotid artery: Calcified plaque in the cavernous right internal carotid artery. There is occlusion or near occlusion of the distal cavernous portion of the artery with reconstituted flow in the supraclinoid portion. Right middle cerebral artery: No occlusion or significant stenosis. No aneurysm. Right anterior cerebral artery: Congenitally small A1 segment of the right anterior cerebral artery with severe proximal stenosis. No definite visible anterior communicating branch. Left internal carotid artery: Calcified plaque in the cavernous left internal carotid artery with mild stenosis. Left middle cerebral artery: No occlusion or significant stenosis. No aneurysm. Left anterior cerebral artery: No occlusion or significant stenosis. No aneurysm. POSTERIOR CIRCULATION: Right vertebral artery: No occlusion or significant stenosis. No aneurysm. Left vertebral artery: No occlusion or significant stenosis. No aneurysm. Basilar artery: No occlusion or significant stenosis. No aneurysm. Right posterior cerebral artery: No occlusion or significant stenosis. No aneurysm. Left posterior cerebral artery: No occlusion or significant stenosis. No aneurysm. Brain: Stable hypodensity in the superior posterior right frontal lobe. Mild cortical volume loss. Mild hypodensities in supratentorial periventricular and subcortical white matter, consistent with microangiopathy. No intracranial hemorrhage. Cerebral ventricles: No ventriculomegaly. Bones/joints: Unremarkable. No acute fracture. Soft tissues: There is collateralized flow in the left vertebral artery at the C1 level, via muscular branches. Mild stenosis in the distal artery. PROCEDURE INFORMATION: Exam: CTA Neck With Contrast Exam date and time: 02/22/2022 9:44 PM Age: 61 years old Clinical indication: Prior surgery; Surgery type: Coronary stent; Patient HX: RT carotid stenosis noted on US on 02/21/2022. ; Additional info: Carotid stenosis, 3d reconstruction per Dr. Mares TECHNIQUE: Imaging protocol: Computed tomographic angiography of the neck with contrast. 3D rendering (Not supervised by radiologist): MIP and/or 3D reconstructed images were created by the technologist. Radiation optimization: All CT scans at this facility use at least one of these dose optimization techniques: automated exposure control; mA and/or kV adjustment per patient size (includes targeted exams where dose is matched to clinical indication); or iterative reconstruction. Contrast material: OMNI 350; Contrast volume: 95 ml; Contrast route: INTRAVENOUS (IV); COMPARISON: US CV carotid duplex BI* [id number] 02/21/2022 2:02 AM RADIATION DOSE METRICS: Total DLP (mGy-cm): 1732.55 FINDINGS: Right common carotid artery: No stenosis. No dissection or occlusion. Right internal carotid artery: Calcified plaque in the proximal right internal carotid artery with 0% stenosis. The right internal carotid artery is diffusely small in size throughout its course. Right external carotid artery: No occlusion or stenosis of the origin. Left common carotid artery: No stenosis. No dissection or occlusion. Left internal carotid artery: Mild calcified plaque in the proximal left internal carotid artery with 0% stenosis. Left external carotid artery: No occlusion or stenosis of the origin. Right vertebral artery: No stenosis. No dissection or occlusion. Left vertebral artery: There is occlusion of the left vertebral artery from its origin to the C4-C5 level. There is faint reconstituted flow from the C4-C5 level superiorly. There is collateralized flow via muscular branch at the C1 level. Soft tissues: Unremarkable. Bones/joints: Mild degenerative changes of the spine. Lungs: Severe centrilobular emphysema with mild interstitial scarring. CT/CT angio headneck* [id number] IMPRESSION: 1. Small A1 segment of the right anterior cerebral artery with a severe proximal stenosis. No definite patent anterior communicating branch. 2. Occlusion or near occlusion of the distal cavernous portion of the right internal carotid artery with reconstituted flow in the supraclinoid portion via collaterals. 3. Stable hypodensity in the superior posterior right frontal lobe is consistent with an ischemic infarct. IMPRESSION: 1. Occlusion of the left vertebral artery from its origin to the C4-C5 level where there is faint reconstituted flow. There is reconstituted flow at the C1 level via a muscular branch. 2. Diffusely small right internal carotid artery, consistent with downstream occlusion or near occlusion. Please see CTA head report. REFERENCES: NASCET CRITERIA. The degree of stenosis in the cervical segment of the internal carotid artery is based on NASCET criteria. Normal is no stenosis. Mild is less than 50% stenosis. Moderate is 50-69% stenosis. Severe is 70% to 99% stenosis. Total occlusion is no detectable patent lumen.
[2022-02-22 11:29] LABS: Glucose Point of Care 486 mg/dL (70-110)
--- NOTE | 2022-02-22 12:28 | PC.NURSE ---
Patient blood glucose of 486, Dr Hansen contacted regarding sudden increase as patient had been running 200-300s. Per Dr Hansen order for additional 10 units placed in addition to 16 units due per sliding scale.
[2022-02-22] MEDS: insulin lispro 100 unit/1 mL 10 UNIT SUBCUT (12:35)
[2022-02-22 12:40] LABS: Glucose Point of Care 390 mg/dL (70-110)
[2022-02-22 13:26] LABS: Glucose Point of Care 496 mg/dL (70-110)
[2022-02-22 13:26] LABS: Glucose Point of Care > 600 mg/dL (70-110)
--- NOTE | 2022-02-22 14:05 | P.PN_ITS ---
Subjective Subjective: For unclear reasons, patient's MRI and MRA was canceled. We have ordered a CTA of the neck with 3D reconstructions to assess for carotid artery stenosis. Blood sugars have been running in the 600 range. Worked with physical therapy today. Left knee completely jennifer over, unable to sustain his weight. Medications: Reviewed: Yes Vitals/I&O/Wt Last Vital Signs Temp 97.8 F 02/22/22 11:05 Pulse 51 L 02/22/22 11:05 Resp 18 02/22/22 11:05 BP 132/95 02/22/22 11:05 Pulse Ox 98 02/22/22 11:05 O2 Del Method 02/22/22 09:05 02/21/22 02/22/22 02/22/22 22:59 06:59 14:59 Intake Total 360 / 1432 240 / 1672 1080 / 1080 Output Total 200 / 200 600 / 800 Balance 160 / 1232 -360 / 872 1080 / 1080 Weight last 48 hrs Weight 107.501 kg Physical Exam Narrative: General: No acute distress, AO x3 HEENT: PERRLA, pupils bilaterally equal and reactive, pallors not present Chest: Normal vesicular breath sounds, no added sounds, equal good air entry bilaterally CVS: S1-S2 regular, no murmurs, no tachycardia, no gallops, no rubs Abdomen: Soft, nontender, no organomegaly, bowel sounds present Neuro: Left-sided upper and lower extremity weakness, power 3 out of 5 Data : 02/22/22 05:20 02/22/22 05:20 A&P Assessment and plan (1) Noncompliance: Status: Acute (2) Hyperglycemia: Status: Acute (3) CVA (cerebral vascular accident): Status: Acute (4) Chest pain: Status: Acute (5) Coronary artery disease: Status: Acute Plan - CVA -Head CT shows focal area of hypodensity involving the right frontal lobe which is new since 2017, and likely represents an acute to subacute infarct, there is similar but smaller focus involving the right parietal lobe -No history of atrial fibrillation -Left-sided weakness and numbness, falls, slight left facial droop -Neurochecks, NIH stroke scale, aspiration precautions -Aspirin 81 mg daily, Plavix 75 mg daily, bridge for 3 weeks -Atorvastatin 40 mg once daily -Cardiac echo without significant abnormalities, carotid artery ultrasound with >90% stenosis, ordered for f/up CTA neck with reconstruction -PT OT, speech therapy selvin appreciated - Appreciate vascular surgery consult - Hypertensive urgency -Blood pressures at [facility] systolics in the 160s, diastolics in the 100 -was started on Coreg 3.125 twice daily, currently BP well controlled. However HR drops to 45/min. Will d/c carvedilol and start lisinopril instead Type 2 diabetes mellitus, with hyperglycemia - Hba1c 11 -Blood sugar remains poorly controlled. Over the last 24 hours he has needed 68 units of insulin however continues to have poorly controlled blood sugars. Start 25 units of Lantus at bedtime. Additionally add 8 units Premeal insulin 3 times a day. Hypertension as above Hyperlipidemia, started on statins. 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
[2022-02-22 16:26] LABS: Glucose Point of Care 280 mg/dL (70-110)
[2022-02-22] MEDS: insulin lispro 100 unit/1 mL 8 UNIT SUBCUT (17:33)
[2022-02-22 20:26] LABS: Glucose Point of Care 287 mg/dL (70-110)
[2022-02-22] MEDS: insulin glargine 100 units/1 mL 25 UNIT SUBCUT (21:22)
[2022-02-22] MEDS: iohexol 350 mg/mL 100 mL Btl IV (21:49)
[2022-02-23] VITALS (10 sets, daily range): BP systolic 99–136; BP diastolic 64–88; PULSE 54–66; RESP 16–24; TEMP 36.5–36.8; O2SAT 95–98
[2022-02-23] MEDS: aspirin 81 mg EC Tablet PO (02:32)
[2022-02-23] MEDS: enoxaparin 40 mg/0.4 mL Syringe SUBCUT (02:32)
[2022-02-23] MEDS: clopidogrel 75 mg Tablet PO (02:32)
[2022-02-23] MEDS: atorvastatin 40 mg Tablet PO (02:32)
[2022-02-23 05:14] LABS: Basophils # 0.1 10^3/uL (0.0-0.1); Basophils % 0.8 %; Eosinophils # 0.3 10^3/uL (0.0-0.8); Eosinophils % 2.4 %; Hematocrit 47.4 % (42.0-52.0); Hemoglobin 16.3 g/dL (11.7-16.6); Lymphocytes # 2.9 10^3/uL (0.8-4.8); Lymphocytes % 25.7 %; Mean Corpuscular HGB Conc 34.4 g/dL (30.0-36.0); Mean Corpuscular Hemoglobin 29.6 pg (28.0-34.0); Mean Platelet Volume 11.1 fL (7.4-10.4); Monocytes # 1.1 10^3/uL (0.2-0.9); Monocytes % 9.4 %; Neutrophils % 60.5 %; Nucleated Red Blood Cells % 0 %; Platelet Count 213 10^3/cmm (130-400); Positive C 1; Red Blood Count 5.51 10^6/uL (4.1-5.3); Red Cell Distribution Width 12.8 % (12.1-15.1); White Blood Count 11.2 10^3/uL (4.0-10.0)
[2022-02-23 05:27] LABS: Slide Review Slide Review Perform
[2022-02-23 05:29] LABS: Alanine Aminotransferase 25 U/L (0-41); Albumin Level 3.5 g/dL (3.5-5.2); Alkaline Phosphatase 112 U/L (40-130); Blood Urea Nitrogen 16 mg/dL (8-23); Calcium 9.4 mg/dL (8.5-10.5); Carbon Dioxide 22 mmol/L (22-29); Chloride 97 mmol/L (98-107); Creatinine Clr Calc Pharmacy 106.1431; Globulin 2.6 g/dL (1.3-4.6); Glomerular Filtration Rate 85.5 mL/min (90-130); Glucose 351 mg/dL (65-115); Osmolality Calculated 285 mOsm/kg (285-295); Sodium 130 mmol/L (136-145); Total Bilirubin 0.5 mg/dL (0.15-1.2); Total Protein 6.1 g/dL (6.6-8.7)
[2022-02-23] MEDS: oxyCODONE-APAP 5-325 mg Tablet 1 TAB PO (05:33)
[2022-02-23 05:36] LABS: Anion Gap 15.6 (5-19); Aspartate Amino Transferase 21 U/L (0-40); Potassium 4.6 mmol/L (3.5-5.1)
[2022-02-23 06:27] LABS: Glucose Point of Care 315 mg/dL (70-110)
--- NOTE | 2022-02-23 06:44 | PM.MISC ---
Miscellaneous Note Purpose of Documentation: Concerns for CVA Note: I was asked to evaluate patient around 6:40 AM, he started to describe right hand numbness, no weakness. I evaluated patient, he is alert oriented x3, following all commands, he tells me that he did a lot of work with his hands, right now he has numbness of his entire right palm, the numbness is in the right palm and right hand, does not extend anywhere else, no loss of strength, no loss of coordination, no facial droop no slurring of his words, no visual deficits, no numbness of his right face, no numbness of his right leg. Is Tinel and Phalen sign was slightly positive, he tells me that he does have numbness of his left hand, he was found to have a right frontal lobe infarct, he was also found to have right anterior cerebral artery with severe proximal stenosis, occlusion or near occlusion of the distal cavernous portion of the right internal carotid artery with reconstituted flow, stable hypodensity in the superior posterior frontal lobe consistent with ischemic infarct, occlusion of the left vertebral artery from its origin at the C4-C5 letter words faint flow, diffuse small right internal carotid artery consistent with downstream occlusion or near occlusion. Cardiothoracic surgery has been consulted, he is on aspirin, statin, Plavix. To me this seems more like carpal tunnel syndrome on the right however I will do a CT of his head, continue neurochecks.
--- NOTE | 2022-02-23 06:48 | CT_ITS ---
WS: [id number] CT HEAD TECHNIQUE: Noncontrast CT of the head obtained from the skullbase to the vertex. CLINICAL INFORMATION: right hand numbness COMPARISON: CT February 20 DLP: 1143.[address] scans at [facility] use at least one of these dose optimization techniques: automated e xposure control; mA and/or kV adjustment per patient size (includes targeted exams where dose is matc hed to clinical indication); or iterative reconstruction. FINDINGS: No evidence of intracranial hemorrhage. Stable area of low-attenuation RIGHT parasagittal frontal lob e near the vertex consistent with subacute ischemia. This is stable compared to the prior examination . No significant mass effect or midline shift. Patchy low-attenuation change involving the RIGHT marilyn etal occipital junction unchanged from February 20, 2022 may be chronic. Additional area of low-att enuation change RIGHT parasagittal parietal vertex suspicious for an additional area of subacute isch emia stable from February 22, 2022 Mild small vessel changes. Mild parenchymal volume loss. Dense calcification RIGHT supraclinoid ICA. Mastoid air cells well aerated. Paranasal sinuses are wel l aerated. CT/CT head wo con* [id number] IMPRESSION: 1. No evidence of intracranial hemorrhage or significant mass effect. 2. Stable area of subacute ischemia involving the RIGHT parasagittal frontal l obe. 3. No other significant changes compared to previous. 4. Patchy low-attenuation change in the RIGHT parieto-occipital junction uncha nged since February 20, 2022 may be chronic. 5. Additional area of low-attenuation change RIGHT parasagittal parietal verte x suspicious for an additional area of subacute ischemia stable from February 22, 2022 6. Mild small vessel changes with mild parenchymal volume loss. 7. No significant interval changes.
[2022-02-23] MEDS: insulin lispro 100 unit/1 mL 8 UNIT SUBCUT ×2 (07:35→13:10)
[2022-02-23] MEDS: insulin lispro 100 unit/1 mL SUBCUT ×2 (08:34→13:11)
[2022-02-23] MEDS: thiamine 100 mg Tablet PO (08:35)
[2022-02-23] MEDS: lisinopril 5 mg Tablet PO (08:35)
[2022-02-23] MEDS: pantoprazole DR 40 mg Tablet PO (08:35)
[2022-02-23] MEDS: multivitamin therapeutic Tablet 1 TAB PO (08:35)
[2022-02-23] MEDS: folic acid 1 mg Tablet PO (08:35)
[2022-02-23 12:22] LABS: Glucose Point of Care 339 mg/dL (70-110)
--- NOTE | 2022-02-23 13:16 | PM.DCS ---
Discharge Providers Date of Admission: 02/21/22 01:02 Date of Discharge: February 23, 2022 Attending Provider at Admission: Quintin Greer MD Attending Provider at Discharge: Johana Hansen MD Primary Care Provider: Cody Monterroso Diagnoses at Discharge Discharge Diagnosis (1) Noncompliance: Status: Acute (2) Hyperglycemia: Status: Acute (3) CVA (cerebral vascular accident): Status: Acute (4) Chest pain: Status: Acute (5) Coronary artery disease: Status: Acute Reason for Visit Reason for Visit: CVA Hospital Course Hospital Course Steve Louis is a 61 year old male who was transferred from [facility]?for continued treatment for an apparent CVA.? Mr. Louis had been complaining of increasing difficulty with walking along with left-sided weakness and now progressive left-sided paresthesias.? The symptoms all began about 2 weeks ago with a slight period of improvement and now worsening.? He presented with left upper and left lower extremity weakness along with paresthesia.? He also has some slight hypoesthesia of his tongue though no slurring of speech or facial droop.? Over the past 2 days prior to presentation, the symptoms have increased and been more consistent as compared to their variability prior. He has numerous comorbidities including coronary artery disease status post 7 stents.? He also has a history of hyperlipidemia, hepatitis C, hypertension, COPD, and history of medical noncompliance.? He also has uncontrolled diabetes mellitus. CT scan of the head obtained at [facility] showed focal areas of hypodensity involving the right frontal lobe as well as a smaller focus in the right parietal lobe which they felt represented subacute infarction.Since arrival, transthoracic echocardiogram revealed preserved LV function with normal ventricular size and wall thickness and motion.? Carotid duplex study describes a right carotid bulb plaque suggesting stenosis of over 90%.? Left ICA suggest stenosis less than 50%. Follow up CTA head and neck showed no stenosis of the common carotids but significant intracerebral disease. Occlusion or near occlusion of the distal cavernous portion of the right internal carotid artery with reconstituted flow in the supraclinoid portion via collaterals. There is no current indication for surgical intervention. Patient is being discharged with recommendations for DAPT for 3 weeks followed by ASA 81mg po daily. He had PT/OT/ speech evelautions while inpaytient. He elected to return home with his daughter. For his diabetes mellitus which is extremely poorly controlled, he has been started on Lantus insulin and glipizide. Patient states he has taken insulin in the past and is familiar with how to use it. He is not enthusiastic about using both short and long-acting insulin therefore once daily Lantus with OHA's has been chosen as the discharge regimen. Of note patient has been noncompliant with multiple medications in the past, he is encouraged compliance and close follow-up with his primary care provider. Physical Exam Narrative: General: No acute distress, AO x3 HEENT: PERRLA, pupils bilaterally equal and reactive, pallors not present Chest: Normal vesicular breath sounds, no added sounds, equal good air entry bilaterally CVS: S1-S2 regular, no murmurs, no tachycardia, no gallops, no rubs Abdomen: Soft, nontender, no organomegaly, bowel sounds present Neuro: left upper and left lower extremity weakness. Discharge Data Studies Completed and Pending Completed Studies During Hospitalization Category Date Time Status CT head wo con* [id number] Stat Cat Scan 02/23/22 06:48 Completed CTA head neck [CT angio headneck* [id number]] Routine Cat Scan 02/22/22 11:13 Completed XR shoulder LT min 2V* [id number] Routine Exams 02/21/22 01:05 Completed CV carotid duplex BI* [id number] Routine Ultrasound 02/21/22 01:05 Completed CV. echo complete* [id number] Routine Ultrasound 02/21/22 01:05 Completed Pending at discharge Category Date Time Status Hepatitis C RNA Viral Load Qnt Stat Lab 02/21/22 04:14 Received Radiology Impressions Carotid Doppler Study 02/21/22 01:05 IMPRESSION: 1. Moderate right bulb plaque. Decreased peak systolic velocities of the right proximal internal carotid artery with high resistance waveforms. This is suggestive of severe >90% stenosis. Recommend CTA or MRI for further assessment. 2. Left ICA < 50% stenosis by Carotid Stenosis Reference using SRU criteria. 3. Antegrade flow in bilateral vertebral arteries. REFERENCES: SRU CRITERIA. The degree of internal carotid artery stenosis is based on criteria defined by the Society of Radiologists in Ultrasound (SRU). Normal is no stenosis. Mild is less than 50% stenosis. Moderate is 50-69% stenosis. Severe is greater than 69% stenosis to near occlusion. Near occlusion is a markedly narrowed lumen. Total occlusion is no detectable patent lumen. Shoulder X-Ray 02/21/22 01:05 IMPRESSION: Widening of left AC joint with small ossification within joint space but no significant adjacent soft tissue swelling most likely represents a remote injury. Head/Neck CTA 02/22/22 11:13 IMPRESSION: 1. Small A1 segment of the right anterior cerebral artery with a severe proximal stenosis. No definite patent anterior communicating branch. 2. Occlusion or near occlusion of the distal cavernous portion of the right internal carotid artery with reconstituted flow in the supraclinoid portion via collaterals. 3. Stable hypodensity in the superior posterior right frontal lobe is consistent with an ischemic infarct. IMPRESSION: 1. Occlusion of the left vertebral artery from its origin to the C4-C5 level where there is faint reconstituted flow. There is reconstituted flow at the C1 level via a muscular branch. 2. Diffusely small right internal carotid artery, consistent with downstream occlusion or near occlusion. Please see CTA head report. REFERENCES: NASCET CRITERIA. The degree of stenosis in the cervical segment of the internal carotid artery is based on NASCET criteria. Normal is no stenosis. Mild is less than 50% stenosis. Moderate is 50-69% stenosis. Severe is 70% to 99% stenosis. Total occlusion is no detectable patent lumen. Head CT 02/23/22 06:48 IMPRESSION: 1. No evidence of intracranial hemorrhage or significant mass effect. 2. Stable area of subacute ischemia involving the RIGHT parasagittal frontal lobe. 3. No other significant changes compared to previous. 4. Patchy low-attenuation change in the RIGHT parieto-occipital junction unchanged since February 20, 2022 may be chronic. 5. Additional area of low-attenuation change RIGHT parasagittal parietal vertex suspicious for an additional area of subacute ischemia stable from February 22, 2022 6. Mild small vessel changes with mild parenchymal volume loss. 7. No significant interval changes. Laboratory Results WBC 11.2 10^3/uL (4.0-10.0) H 02/23/22 05:05 RBC 5.51 10^6/uL (4.1-5.3) H 02/23/22 05:05 Hgb 16.3 g/dL (11.7-16.6) 02/23/22 05:05 Hct 47.4 % (42.0-52.0) 02/23/22 05:05 MCV 86.0 fl (80-94) 02/23/22 05:05 MCH 29.6 pg (28.0-34.0) 02/23/22 05:05 MCHC 34.4 g/dL (30.0-36.0) 02/23/22 05:05 RDW 12.8 % (12.1-15.1) 02/23/22 05:05 Plt Count 213 10^3/cmm (130-400) 02/23/22 05:05 MPV 11.1 fL (7.4-10.4) H 02/23/22 05:05 Neut % (Auto) 60.5 % 02/23/22 05:05 Lymph % (Auto) 25.7 % 02/23/22 05:05 [place] % (Auto) 9.4 % 02/23/22 05:05 Eos % (Auto) 2.4 % 02/23/22 05:05 Baso % (Auto) 0.8 % 02/23/22 05:05 Neut # (Auto) 6.80 10^3/uL (1.8-7.7) 02/23/22 05:05 Lymph # (Auto) 2.9 10^3/uL (0.8-4.8) 02/23/22 05:05 [place] # (Auto) 1.1 10^3/uL (0.2-0.9) H 02/23/22 05:05 Eos # (Auto) 0.3 10^3/uL (0.0-0.8) 02/23/22 05:05 Baso # (Auto) 0.1 10^3/uL (0.0-0.1) 02/23/22 05:05 Nucleated RBC % (auto) 0 % 02/23/22 05:05 Nucleated RBCs # 0.0 /100WBC 02/23/22 05:05 Sodium 130 mmol/L (136-145) L 02/23/22 05:05 Potassium 4.6 mmol/L (3.5-5.1) 02/23/22 05:05 Chloride 97 mmol/L (98-107) L 02/23/22 05:05 Carbon Dioxide 22 mmol/L (22-29) 02/23/22 05:05 Anion Gap 15.6 (5-19) 02/23/22 05:05 BUN 16 mg/dL (8-23) 02/23/22 05:05 Creatinine 0.9 mg/dL (0.7-1.2) 02/23/22 05:05 GFR Calculation 85.5 mL/min (90-130) L 02/23/22 05:05 Glucose 351 mg/dL (65-115) H 02/23/22 05:05 POC Glucose 339 mg/dL (70-110) H 02/23/22 11:46 Estimat Average Glucose 289 02/21/22 04:14 Hemoglobin A1c 11.7 % (4.0-6.0) H 02/21/22 04:14 Calculated Osmolality 285 mOsm/kg (285-295) 02/23/22 05:05 Calcium 9.4 mg/dL (8.5-10.5) 02/23/22 05:05 Magnesium 1.9 mg/dL (1.7-2.3) 02/21/22 04:14 Total Bilirubin 0.5 mg/dL (0.15-1.2) 02/23/22 05:05 Direct Bilirubin 0.20 mg/dL (0.00-0.30) 02/21/22 04:14 AST 21 U/L (0-40) 02/23/22 05:05 ALT 25 U/L (0-41) 02/23/22 05:05 Alkaline Phosphatase 112 U/L (40-130) 02/23/22 05:05 Troponin T Baseline 36 ng/L (0-15) H 02/21/22 04:14 Troponin T 120 Minute 34.51 ng/L (0-15) H 02/21/22 06:12 Delta Troponin T -1.49 ABS# (0-10) L 02/21/22 06:12 Troponin T Hi Sens 6Hr 37.83 ng/L (0-15) H 02/21/22 10:10 Troponin T Hi Sens 6Hr Delta 1.83 ng/L (0-12) 02/21/22 10:10 NT-Pro-B Natriuret Pep 234 pg/mL (0-125) H 02/21/22 04:14 Total Protein 6.1 g/dL (6.6-8.7) L 02/23/22 05:05 Albumin 3.5 g/dL (3.5-5.2) 02/23/22 05:05 Globulin 2.6 g/dL (1.3-4.6) 02/23/22 05:05 Triglycerides 255 mg/dL (0-150) H 02/21/22 04:14 Cholesterol 187 mg/dL (0-200) 02/21/22 04:14 LDL Cholesterol, Calc 110 mg/dL (50-129) 02/21/22 04:14 HDL Cholesterol 26 mg/dL (60-100) L 02/21/22 04:14 LDL/HDL Ratio 4.23 RATIO (0.00-3.22) H 02/21/22 04:14 Cholesterol/HDL Ratio 7.19 mg/dL (1.0-5.00) H 02/21/22 04:14 Hepatitis A IgM Ab Non-reactive (Nonreactive) 02/21/22 04:14 Hep Bs Antigen Non-reactive (Nonreactive) 02/21/22 04:14 Hep B Core IgM Ab Non-reactive (Nonreactive) 02/21/22 04:14 Hepatitis C Antibody Reactive (Nonreactive) H 02/21/22 04:14 HCV RNA Qnt PCR Amp&Det Cancelled 02/21/22 05:09 HCV RNA (PCR) IUs/ml Cancelled 02/21/22 05:09 HCV RNA (PCR) IU log10 Cancelled 02/21/22 05:09 Vitals Last Vital Signs Temp 97.8 F 02/23/22 11:47 Pulse 64 02/23/22 11:47 Resp 18 02/23/22 11:47 BP 131/80 02/23/22 11:47 Pulse Ox 97 02/23/22 11:47 O2 Del Method 02/23/22 06:05 Discharge Plan Discharge Patient Disposition: Home Condition: Stable Prescriptions: New insulin glargine 100 unit/mL Solution 30 unit SUBCUT BEDTIME 30 Days Qty: 30 0RF clopidogrel 75 mg Tablet 75 mg PO Q24H 30 Days Qty: 30 0RF aspirin 81 mg Tablet,Delayed Release (Dr/Ec) 81 mg PO Q24H 30 Days Qty: 30 0RF pantoprazole 40 mg Tablet,Delayed Release (Dr/Ec) 40 mg PO DAILY 30 Days Qty: 30 0RF folic acid 1 mg Tablet 1 mg PO DAILY 30 Days Qty: 30 0RF lisinopril 5 mg Tablet 5 mg PO DAILY 30 Days Qty: 30 0RF Vitamin B-1 (mononitrate) 100 mg Tablet 100 mg PO DAILY 30 Days Qty: 30 0RF Glucotrol XL 2.5 mg tablet extended release 24hr 2.5 mg PO DAILY 30 Days Qty: 30 0RF Continued atorvastatin 40 mg tablet 40 mg PO QPM isosorbide mononitrate 30 mg tablet extended release 24 hr 15 mg PO QAM ProAir HFA 90 mcg/actuation HFA aerosol inhaler 2 puff INHALATION Q4H PRN (Reason: Shortness Of Breath) Discharge Orders: Discharge Order (Routine); Ordered 02/23/22 Ordered By: Johana Hansen Other Ambulatory Orders: DME: Walker (Order) Location: None Selected Ordered By: Johana Hansen Referrals: State In Home Service Setup [Other] (You can call this number to see if you qualify for in home services. They will ask you a series of questions and assign you points based off your answers. The total number of points assigned will determine how many hours of service you can qualify for. ) Discharge Diet: Cardiac and Diabetic Discharge Activity: Use walker/crutches as instructed and As per PT/OT instructions Patient Instructions: Opioid Safety Discharge Attestations Time Spent in Discharge Care*: greater than 30 min Quality Metrics Clinical Quality Measures [ Cerebrovascular Accident { Contraindication to Antithrombotic: None; antithrombotic prescribed; Contraindication to Anticoagulation: Overlap treatment not indicated; Contraindication to Statin: None; Statin prescribed;}] Coding Level of Care Code Acute [facility] note Diagnoses Noncompliance Z91.19 Hyperglycemia R73.9 CVA (cerebral vascular accident) I63.9 Chest pain R07.9 Coronary artery disease I25.10
--- NOTE | 2022-02-23 14:05 | PC.CHAP ---
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 [] Patient/Family/Request visit [] Outpatient visit [] Follow-up visit [] Physician referral [] Code/Alert [x] Routine visit [] Staff referral [] Actively dying [x] Patient sleeping [] Family support [] [] Out of room [] Palliative care [] [] Receiving care in room [] Pre-surgical visit [] Trauma [] Long length of stay [] ICU visit [] Other: Relational/Emotional Strength [] Patient feels connected with others/family/visitors/staff [] Distress [] Loneliness/isolation [] Abandonment Spirituality of Patient [] Person of [place] [] Attends Denominational of their [place] [] Believes in Prayer [] Reads Bible or Mosque materials [] There are Spiritual issues to be addressed Bilingual Interpreter Interventions [] Prayer [] Active listening [] Non-anxious presence [] Spiritual/emotional support [] Crisis/trauma care [] Spiritual counseling [] Bereavement support [] Provided bereavement packet [] Provided Bible/devotional materials [] Provided toy/stuffed animal, coloring book to patient or family member [] Provided Communion [] Anointing/[place] [] Salvation [] Completed spiritual assessment [] Other: Impact on Illness or Injury [] Angry [] Fearful [] Anxious [] Often cries [] Exhaustion [] Unable to work [] Unable to attend presybeterian [] Unable to walk/stand [] Unable to read [] Unable to drive [] Unable to eat/drink [] Unable to sleep [] Unable to be with family [] Patient intubated [] Other: Summary Time spent with patient
--- NOTE | 2022-02-23 15:44 | PC.NURSE ---
Discharge Note Patient discharged to HOME via PRIVATE VEHICLE. Discharge instructions reviewed with patient. pts pharmacy medications and/or prescriptions provided. Belongings/home medications returned.
[2022-02-23 20:53] LABS: HEP C RNA Viral Load Quant 6.95 Log IU/mL (NOT DETECTED)
== END 2022-02-23 15:05 | disposition home or self-care (01) | DRG 65 ==
PROVIDERS: Admitting Provider Family Medicine; PCP Family Medicine; Visit Provider Student in an Organized Health Care Education/Training Program
DX: I63.231 Cerebral infarction due to unspecified occlusion or stenosis of right carotid arteries (principal); B17.10 Acute hepatitis C without hepatic coma; G81.94 Hemiplegia, unspecified affecting left nondominant side; N39.0 Urinary tract infection, site not specified; R29.810 Facial weakness; R29.704 NIHSS score 4; I25.10 Atherosclerotic heart disease of native coronary artery without angina pectoris; Z95.5 Presence of coronary angioplasty implant and graft; I10 Essential (primary) hypertension; E78.5 Hyperlipidemia, unspecified; J44.9 Chronic obstructive pulmonary disease, unspecified; Z91.128 Patient's intentional underdosing of medication regimen for other reason; E11.65 Type 2 diabetes mellitus with hyperglycemia; F10.20 Alcohol dependence, uncomplicated; F15.10 Other stimulant abuse, uncomplicated; M25.512 Pain in left shoulder; I16.0 Hypertensive urgency
CPT/HCPCS: 36415; 36416; 70450; 70496; 70498; 73020; 73030; 80048; 80053; 80061; 80074; 80076; 82962; 83036; 83735; 83880; 84484; 85025; 87522; 93005; 93306; 93880; 94640; 94664; 94760; 96372; 97110; 97116; 97161; 97166; J1650; J1815; J2270; J3411; Q9967